=== PATIENT | female | born 1970 | race Caucasian/White ===

== ENCOUNTER 2019-10-28 13:09 | Emergency (ER) | payer OTHER ==
[~2019-10-28] VITALS: Ht 165.1 cm; Wt 72.6 kg
[2019-10-28 13:52] VITALS: BP 131/88
--- NOTE | 2019-10-28 14:00 | NUR ---
TO LOBBY. AWAITING BED IN ED.
--- NOTE | 2019-10-28 14:43 | NUR ---
49 Y/O FEMALE PRESENT WITH LOWER RIGHT SIDED BACK PAIN RADIATING TO LEG CAUSING LEFT LEG PRESSURE. NO BLISTERS NOTED ON BACK/ABD/ LEG. DENIES INJURY. ROM IN TACT IN BILAT LOWER EXTREMITIES. CMS+. CAP REFILL <3. WHEEZES HEAR IN BILAT LUNGS, PT COMPLAINING OF DRY COUGH SINCE YESTERDAY. RESP EVEN AND UNLABORED. BOWEL SOUNDS NORMOACTIVE. DENIES ANY BURNING WITH URINATION, FREQUENCY. PMH: COPD NKA
[2019-10-28] MEDS ORDERED: ALBUTEROL SULFATE/IPRATROPIU 3 ML SOL IH ONE (14:45)
[2019-10-28] MEDS ORDERED: HYDROcodone/APAP 5/325 MG 1 TAB TAB PO ONE (14:45)
[2019-10-28] MEDS ORDERED: CRUSHER, PILL MC ONE (14:55)
--- NOTE | 2019-10-28 14:57 | NUR ---
ADMINISTERED [facility] THERAPY AND RESPIRATORY DRUG ORDERED
--- NOTE | 2019-10-28 14:57 | NUR ---
PT REQUESTED TO TAKE HALF OF NORCO, CONFIRMED IF OKAY WITH DR LEONARD COPELAND.
--- NOTE | 2019-10-28 14:59 | NUR ---
RT AT BEDSIDE
--- NOTE | 2019-10-28 15:10 | NUR ---
applied sylvester wrap to left knee without any issues
[2019-10-28 15:22] VITALS: BP 131/88
== END 2019-10-28 15:22 | disposition home or self-care (01) ==
LOC: MED 13:09
DX: M54.42 Lumbago with sciatica, left side (principal); S83.402A Sprain of unspecified collateral ligament of left knee, initial encounter; J44.1 Chronic obstructive pulmonary disease with (acute) exacerbation; X58.XXXA Exposure to other specified factors, initial encounter; Y93.89 Activity, other specified; Y92.89 Other specified places as the place of occurrence of the external cause; Y99.8 Other external cause status
CPT/HCPCS: 94640; 99283; J7620